=== PATIENT | male | born 1975 | race Caucasian/White ===

== ENCOUNTER 2019-04-06 15:26 | Emergency (ER) | payer MEDICAID ==
[~2019-04-06] VITALS: Ht 167.6 cm; Wt 104.5 kg
[~2019-04-06 15:26] MED LIST: NO HOME MEDS
[2019-04-06] MEDS ORDERED: HYDROcodone/acetaminophen 5mg/325mg tablet PO ONE (15:55)
[2019-04-06 16:23] LABS: BASOPHILS # (AUTO) 0.1 X10'3 (0-0.2); BASOPHILS % (AUTO) 0.5 % (0-1); EOSINOPHILS # (AUTO) 0.3 X10'3 (0-0.9); EOSINOPHILS % (AUTO) 2.1 % (0-6); HEMATOCRIT 44.5 % (42.0-52.0); HEMOGLOBIN 14.7 g/dl (14.0-17.9); LYMPHOCYTES % (AUTO) 15.6 % (21-51); MEAN CORPUSCULAR HEMOGLOBIN 29.7 PG (27.0-31.0); MEAN CORPUSCULAR HGB CONC 33.1 g/dL (33.0-36.5); MEAN CORPUSCULAR VOLUME 89.7 FL (78-98); MEAN PLATELET VOLUME 7.6 FL (7.4-10.4); MONOCYTES # (AUTO) 0.9 X10'3 (0-0.9); NEUTROPHILS # (AUTO) 9.4 X10'3 (1.8-7.7); NEUTROPHILS % (AUTO) 74.8 % (42-75); PLATELET COUNT 333 X10'3 (140-440); RED BLOOD COUNT 4.96 X10'6 (4.70-6.10); RED CELL DISTRIBUTION WIDTH 13.4 % (11.5-14.5); WHITE BLOOD COUNT 12.6 X10'3 (4.5-11.0)
[2019-04-06] MEDS ORDERED: iohexol 300mg/ml 100ml inj. ONE (16:42)
[2019-04-06 16:55] LABS: ALBUMIN 3.3 G/DL (3.4-5.0); ANION GAP 10 (8-16); BLOOD UREA NITROGEN 14 MG/DL (7-18); BUN/CREATININE RATIO 15.1 (5.4-32.0); CALCIUM 8.9 MG/DL (8.5-10.1); CHLORIDE 103 MMOL/L (99-107); CREATININE 0.93 MG/DL (0.60-1.10); GLUCOSE 141 MG/DL (70-104); POTASSIUM 3.9 MMOL/L (3.5-5.1); SODIUM 139 MMOL/L (135-145); TOTAL CARBON DIOXIDE 25.9 MMOL/L (24-32); eGFR 88 ML/MIN
[2019-04-06] MEDS ORDERED: ibuprofen tablet 400 MG TABLET PO ONE (19:30)
[2019-04-06] MEDS ORDERED: ibuprofen 200mg tablet PO ONE (19:30)
[2019-04-06] MEDS ORDERED: vancomycin/NS 1 GM ADD-VANTAGE 250 ML IV ONE (20:20)
[2019-04-06] MEDS ORDERED: clindamycin 600mg/D5W 50ml 50 ML IV ONE (20:20)
[2019-04-06] MEDS ORDERED: LORazepam 1 MG tablet PO ONE (21:15)
--- NOTE | 2019-04-06 21:18 | NUR ---
Pt is visibly anxious but refusing ativan at this time. MAYANK Garrett at bedside to explain POC to pt.
[2019-04-06 22:56] VITALS: BP 128/86
== END 2019-04-06 22:58 | disposition short-term general hospital (02) ==
LOC: ER 15:27
DX: L02.11 Cutaneous abscess of neck (principal); F15.90 Other stimulant use, unspecified, uncomplicated; F10.99 Alcohol use, unspecified with unspecified alcohol-induced disorder; Z98.890 Other specified postprocedural states; Z60.2 Problems related to living alone; Z88.0 Allergy status to penicillin; Y90.9 Presence of alcohol in blood, level not specified
CPT/HCPCS: 36415; 70491; 80048; 83605; 84145; 85025; 87040; 96365; 96366; 96368; 99285; J3370; Q9967; J3490